=== PATIENT | female | born 1995 | race Caucasian/White ===

== ENCOUNTER 2018-02-22 18:16 | Emergency (ER) | payer OTHER ==
[2018-02-22 18:24] VITALS: BP 132/81; PULSE 83; TEMP 98.5; BMI 31.2
--- NOTE | 2018-02-22 19:44 | PDOC ---
History of Present Illness - General Chief Complaint: Back Pain Stated Complaint: BACK INJURY History Source: Patient Exam Limitations: No Limitations - History of Present Illness Initial Comments: 02/22/18 19:38 Patient is a 23 year old female with h/o right knee orthoscopic surgery c/o lower back pain since 4:30 pm today. 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 States with the impact she got a sharp pain in the buttock and the midline lumbar spine. Pain is 5/10 but states she had taken Tylenol for a PANDA just prior. No bowel or bladder incontinence,. no saddle anesthesia. PMD: in [facility] PMHX: as above PSOCHX: neg etoh, drugs, cig ALL: NKDA GENERAL/CONSTITUTIONAL: [No fever or chills. No weakness. No weight change.] HEAD, EYES, EARS, NOSE AND THROAT: [No change in vision. No ear pain or discharge. No sore throat.] CARDIOVASCULAR: [No chest pain or shortness of breath.] RESPIRATORY: [No cough, wheezing, or hemoptysis.] GASTROINTESTINAL: [No nausea, vomiting, diarrhea or constipation. No rectal bleeding.] GENITOURINARY: [No dysuria, frequency, or change in urination.] MUSCULOSKELETAL: [No joint or muscle swelling or pain. No neck or back pain.] SKIN AND BREASTS: [No rash or easy bruising.] NEUROLOGIC: [No headache, vertigo, loss of consciousness, or loss of sensation.] PSYCHIATRIC: [No depression or anxiety.] ENDOCRINE: [No increased thirst. No abnormal weight change.] HEMATOLOGIC/LYMPHATIC: [No anemia, easy bleeding, or history of blood clots.] ALLERGIC/IMMUNOLOGIC: [No hives or skin allergy. No latex allergy.] GENERAL: [The patient is awake, alert, and fully oriented, in no acute distress. ] HEAD: [Normal with no signs of trauma.] EYES: [Pupils equal, round and reactive to light, extraocular movements intact, sclera anicteric, conjunctiva clear.] ENT: [Ears normal, nares patent, oropharynx clear without exudates. Moist mucous membranes.] NECK: [Normal range of motion, supple without lymphadenopathy, JVD, or masses.] LUNGS: [Breath sounds equal, clear to auscultation bilaterally. No wheezes, and no crackles.] HEART: [Regular rate and rhythm, normal S1 and S2 without murmur, rub.] ABDOMEN: [Soft, nontender, normoactive bowel sounds. No guarding, no rebound. No masses.] BACK: mild tenderness midline lumbar spine and paraspinal EXTREMITIES: [Normal range of motion, no edema. No clubbing or cyanosis. No cords, erythema, or tenderness.] NEUROLOGICAL: [Cranial nerves II through XII grossly intact. Normal speech, normal gait, 5/5 strength b/l] PSYCH: [Normal mood, normal affect.] SKIN: [Warm, Dry, normal turgor, no rashes or lesions noted.] Past History - Past Medical History Allergies/Adverse Reactions: Allergies Allergy/AdvReac Type Severity Reaction Status Date / Time No Known Allergies Allergy Verified 02/22/18 18:24 Home Medications: Ambulatory Orders NK [No Known Home Medication] 02/22/18 COPD: No - Suicide/Smoking/Psychosocial Hx Smoking History: Current every day smoker Number of Cigarettes Smoked Daily: 5 Information on smoking cessation initiated: No *Physical Exam - Vital Signs Last Vital Signs Temp Pulse Resp BP Pulse Ox 98.5 F 83 18 132/81 100 02/22/18 18:22 02/22/18 18:22 02/22/18 18:22 02/22/18 18:22 02/22/18 18:22 Moderate Sedation - Procedure Monitoring Vital Signs: Procedure Monitoring Vital Signs Temperature 98.5 F 02/22/18 18:22 Pulse Rate 83 02/22/18 18:22 Respiratory Rate 18 02/22/18 18:22 Blood Pressure 132/81 02/22/18 18:22 O2 Sat by Pulse Oximetry (%) 100 02/22/18 18:22 ED Treatment Course - RADIOLOGY Radiology Studies Ordered: Category Date Time Status PELVIS [RAD] Stat Radiology 02/22/18 19:17 Ordered SPINE-LUMBAR SACRAL [RAD] Stat Radiology 02/22/18 19:17 Ordered Medical Decision Making - Medical Decision Making 02/22/18 19:38 Patient is a 23 year old female with h/o right knee orthoscopic surgery c/o lower back pain since 4:30 pm today. 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 Work related injury. will get pelvic and l/s spine xray reassess for pain 02/22/18 20:37 xray pelvic and lumbar/sacral spine no fx I discussed the physical exam findings, ancillary test results and final diagnoses with the patient. I answered all of the patient's questions. The patient was satisfied with the care received and felt comfortable with the discharge plan and treatment plan. The Patient agrees to follow up with the primary care physician within 24-72 hours. *DC/Admit/Observation/Transfer Diagnosis at time of Disposition: Back pain Qualifiers: Back pain location: low back pain Chronicity: acute Back pain laterality: unspecified Sciatica presence: without sciatica Qualified Code(s): M54.5 - Low back pain Diagnosis at time of Disposition: (Ruled Out): Contusion - Discharge Dispostion Disposition: HOME Condition at time of disposition: Stable - Referrals Referrals: ON STAFF,NOT [Primary Care Provider] - - Patient Instructions Printed Discharge Instructions: DI for Low Back Pain Additional Instructions: Your Discharge Instructions: You must call primary care physician within 24 hours to arrange follow-up. Return to the Emergency Department with any new, persistent or worsening symptoms, for fever, chills, SOB, dizziness or any other concerning changes that may occur. take Tylenol and motrin for pain as needed. - Post Discharge Activity Forms/Work/School Notes: Back to Work
== END 2018-02-22 20:50 | disposition home or self-care (01) ==
LOC: JERFT 18:16
DX: M54.5 Low back pain (principal); W10.8XXA Fall (on) (from) other stairs and steps, initial encounter; Y93.F9 Activity, other caregiving; Y92.238 Other place in hospital as the place of occurrence of the external cause; Y99.0 Civilian activity done for income or pay
CPT/HCPCS: 72100-TC-FY; 72170-TC-FY; 99281-25